=== PATIENT | female | born 1990 | race Caucasian/White ===

== ENCOUNTER 2016-03-08 13:52 | Emergency (ER) | payer MEDICAID ==
[2016-03-08 15:08] VITALS: BP 129/76; PULSE 103; TEMP 97.7; BMI 34.9
--- NOTE | 2016-03-08 15:12 | EDPRACDOC ---
- General Information Chief Complaint: Bite Stated Complaint: DOG BITE Time Seen by Provider: 03/08/16 15:05 Home Medications: Home Medications Justina-Be 0.35mg Control Tab 1 tab PO DAILY 04/07/15 Ondansetron [Zofran Odt] 4 mg PO TID PRN #10 tab.rapdis 04/07/15 Amoxicillin/Potassium Clav [Augmentin 875-125 Tablet] 1 each PO BID #14 tablet 03/08/16 Allergies/Adverse Reactions: Allergies Allergy/AdvReac Type Severity Reaction Status Date / Time UNKNOWN MUSCLE RELAXER Allergy Itching Uncoded 04/07/15 15:53 - History of Present Illness Onset: DEPUTY [place] HPI: PT STATES THAT HER NEIGHBOR'S DOG WAS ATTACKING HER DOG, STATES THE NEIGHBOR'S DOG BIT HER IN THE LEFT CALF WHEN SHE WAS TRYING TO SEPARATE THEM, PT STATES POLICE WERE CALLED. PT ALSO STATES "I WANT TO GET MY CHECKED OUT", STATES NO PERIOD FOR "3 OR 4 MONTHS", STATES SHE IS HAS HAD "CONSTANT" CRAMPING , SAW PCP, WAS TOLD SHE WAS , HAS APPT WITH [facility] BUT HAS NOT SEEN THEM YET. PT STATES "I JUST WANT TO SEE HOW FAR ALONG I AM AND IF THE HEARTBEAT IS OK". PT DENIES VAG BLEEDING, STATES "I MIGHT HAVE A YEAST INFECTION". Bite Location: Reports: Calf Bite Cause: Dog Symptoms: Reports: Bruising, Pain Bite Wound: Reports: Puncture Animal Immunization Status: Unknown Pain Severity: Mild Shortness of Breath: None Pruritus Severity: None Last Tetanus: Yes Associated signs and symptoms: Denies: Chills, Nausea, Pus, Vomiting, Swelling, Redness ED Past Medical History - History Reviewed Yes Nurses notes reviewed and agree except as marked No Past Medical History: Yes Patient has no past medical history - Patient Medical History GI/ History: Denies: Urinary Tract Infection - Social Medical History Smoking Status: Never smoker EDM Review of Systems - Review of Systems Constitutional: negative: Chills, Fever Gastrointestinal: negative: Diarrhea, Nausea, Pain, Vomiting Genitourinary: . negative: Dysuria, Frequency, Vaginal Bleeding Neurological: negative: Dizziness, Numbness, Weakness Musculoskeletal: No Symptoms Reported Integumentary: Wound - Physical Exam Constitutional: Alert (Awake), No apparent distress Oriented to: Time, Person, Place Last recorded Vital Signs: Last Vital Signs Temp 97.7 F 03/08/16 15:08 Pulse 103 03/08/16 15:08 Resp 20 03/08/16 15:08 BP 129/76 03/08/16 15:08 Pulse Ox 98 03/08/16 15:08 Oxygen Pulse Oxygen Saturation 98 O2 Device Room Air Oxygen Flow Rate Fraction of Inspired Oxygen ( FIO2) - HEENT Head: Normal ( normocephalic) - Neurologic Memory Impaired: Normal Motor Function: Normal (Normal tone, Pulses 2+ No cyanosis or edema, FROM) Cranial Nerve: Normal (CN II-X11 intact sensation, strength 5/5) Cerebellar: Normal Mood Description: Normal Perception: Normal ED Bite Exam - Bite Exam Bite Location: Calf (LEFT POSTERIOR) Wound: Abrasion, Puncture Involvement: Immediate Area Pain Severity: None Involved Limb Distal/Sensory Function: Normal, Capillary Refill. negative: Motor Deficit, Pulse Deficit, Sensory Deficit - Differential Diagnosis Abrasion, Cellulitis, Puncture wound Decision Time to Discharge: 15:34 - Departure Disposition: Home Condition: Stable Final Diagnosis: Dog bite of left calf Qualifiers: Encounter type: initial encounter Qualified Code(s): S81.852A - Open bite, left lower leg, initial encounter; W54.0XXA - Bitten by dog, initial encounter Instructions: Animal Bite (ED) Education/Counseling Given To: Patient Education/Counseling Given Regarding: Diagnosis, Treatment, Prognosis, Follow Up Referrals: Jn Romero MD [Primary Care Provider] - One Week Prescriptions: Amoxicillin/Potassium Clav [Augmentin 875-125 Tablet] 1 each PO BID #14 tablet Additional Instructions: KEEP WOUND CLEAN AND DRY, WASH DAILY WITH SOAP AND WATER, COVER WITH ANTIBIOTIC OINTMENT AND CLEAN BANDAGE. FOLLOW UP WITH [employer] OFFICER SCHEDULED, RETURN TO THE ED FOR ANY WORSENING SYMPTOMS OR CONCERNS.
[2016-03-08 15:30] LABS: AMORPHOUS 2+; LEUKOCYTES/URINE NEG (NEGATIVE); NITRITE/URINE NEG (NEGATIVE); URINE OCCULT BLOOD NEG (NEG/TRACE)
== END 2016-03-08 15:42 | disposition home or self-care (01) ==
LOC: ED 13:52 → EDMC 15:42
DX: O26.899 Other specified pregnancy related conditions, unspecified trimester (principal); S81.852A Open bite, left lower leg, initial encounter; W54.0XXA Bitten by dog, initial encounter; Z3A.00 Weeks of gestation of pregnancy not specified
CPT/HCPCS: 81001; 99282